=== PATIENT | female | born 1980 | race Caucasian/White ===

== ENCOUNTER 2017-01-20 16:38 | Emergency (ER) | payer SELFPAY ==
[~2017-01-20] VITALS: Ht 160 cm; Wt 54.6 kg
[~2017-01-20 16:38] MED LIST: PRED20TA PO
[2017-01-20 16:45] VITALS: TEMP 37; Ht 160 cm; Wt 54.6 kg
[2017-01-20] MEDS ORDERED: AMPICILLIN/SULBACTAM SOD INJ 3,000 MG in SODIUM CHLORIDE 0.9% 100ML 100 ML IV ONE (17:45)
--- NOTE | 2017-01-20 17:59 | EMERGENCY ROOM VISIT NOTE ---
History Report prepared by Karla: Jeffry Butler Under the Supervision of: Dr. Bradley Sepulveda M.D. First contact with patient: 17:38 Chief Complaint: HAND PAIN/INJURY Stated Complaint: RT HAND SWOLLEN History of Present Illness The patient is a 36 year old female who presents to the Emergency Room with complaints of worsening right hand swelling beginning six days ago. The patient states that she bumped her hand into a mailbox six days ago. She notes that she suffered a cut and swelling. She reports that the cut has gone away, but states that the swelling has worsened since then. The patient notes that she also began to experience redness 2-3 days after the she first hit her hand, and the redness has been getting worse. The patient states that her right hand feels tight. She also complains of chills. Tetanus status is unknown. Source of History: patient Onset: six days ago Position: hand (right) Quality: other (swelling and tightness) Timing: worsening Note: She also complains of hand redness. Review of Systems See HPI for pertinent positives & negatives. A total of 10 systems reviewed and were otherwise negative. Past Medical & Surgical Medical Problems: (1) No chronic problems Family History No pertinent family history stated. Social History Smoking Status: Current Every Day Smoker Marital Status: Housing Status: lives with family Occupation Status: unemployed Current/Historical Medications Scheduled Amoxicillin & Pot Clavulanate (Augmentin 875-125 mg), 875 MG PO BID Allergies Coded Allergies: Banana (Verified Allergy, Unknown, 01/20/17) No Known Allergies (Verified , 06/24/04) Uncoded Allergies: HONEY (Allergy, Unknown, 06/24/04) Physical Exam Vital Signs Date Time Temp Pulse Resp B/P (MAP) Pulse Ox O2 Delivery O2 Flow Rate FiO2 01/20/17 18:16 71 18 140/81 98 Room Air 01/20/17 16:45 37.0 86 20 151/90 100 Room Air Physical Exam GENERAL: Patient is in no acute distress. HEENT: No acute trauma, normocephalic atraumatic, mucous membranes moist, no nasal congestion, no scleral icterus. NECK: No stridor, no adenopathy, no meningismus, trachea is midline. LUNGS: Clear to auscultation bilaterally, no wheeze, no rhonchi, breath sounds equal. HEART: Without murmurs gallops or rubs, regular rate and rhythm. ABDOMEN: Soft, nontender, bowel sounds positive, no hernias, no peritonitis. EXTREMITIES: Right dorsal hand has erythema and swelling to the area around the third and fourth metacarpals, no evidence of fracture clinically, minimal pain with palpation, no drainage, no palpable abscess, no pain with extensor tendon movement. NEUROLOGIC: Oriented x 3, no acute motor or sensory deficits, no focal weakness. SKIN: No rash, no jaundice, no diaphoresis. Medical Decision & Procedures Laboratory Results 01/20/17 18:10 Test 01/20/17 18:10 Red Blood Count 4.49 M/uL (4.2-5.4) Mean Corpuscular Volume 92.9 fL (80-100) Mean Corpuscular Hemoglobin 31.2 pg (25-34) Mean Corpuscular Hemoglobin Concent 33.6 g/dl (32-36) RDW Standard Deviation 45.2 fL (36.4-46.3) RDW Coefficient of Variation 13.3 % (11.5-14.5) Mean Platelet Volume 10.7 fL (7.4-10.4) Laboratory results reviewed by me. Medications Administered Medications (Trade) Dose Ordered Sig/Jordan Route Start Time Stop Time Status Last Admin Dose Admin Ampicillin Sodium/ Sulbactam Sodium 3000 mg/Sodium Chloride 108 ml @ 200 mls/hr ONE ONCE IV 01/20/17 17:45 01/20/17 18:17 DC 01/20/17 18:13 200 MLS/HR Diphtheria/ Pertussis/Tetanus Vacc (Adacel Inj) 0.5 ml ONCE ONCE IM. 01/20/17 18:00 01/20/17 18:01 DC 01/20/17 18:14 0.5 ML ED Course 1739: The patient was evaluated in room B3. A complete history and physical exam was performed. 1745: Ampicillin Sodium / Sulbactam Sodium 3000mg mg / Sodium Chloride 108 ml @ 200 mls / hr IV 1800: Adacel Inj 0.5 ml IM 1852: Reevaluated the patient. Discussed results and discharge instructions: She verbalized understanding and agreement. The patient is ready for discharge. Medical Decision Differential diagnoses include: tenosynovitis, cellulitis, fracture, dislocation , and abscess. There is no leukocytosis or concerning anemia. Clinically, there was no evidence for fracture. The patient was asking not to have an x-ray as she has no health insurance. Given the mechanism, given my exam, an x-ray was not ordered. The patient did receive IV Unasyn as antibiotic coverage. She is being discharged on Augmentin. An Adacel booster was given IM to update her tetanus status. The patient has a right dorsal hand cellulitis. No drainage, no abscess. She does not appear to have tenosynovitis as she has no pain with extensor tendon function. The patient was encouraged to rest. If worsening or not improving, she will return. She will take her antibiotics until the prescription is all. Medication Reconcilliation Current Medication List: was personally reviewed by me Blood Pressure Screening Patient's blood pressure: Elevated blood pressure Blood pressure disposition: Elevated BP felt to be situational Impression Primary Impression: Cellulitis Scribe Attestation The scribe's documentation has been prepared under my direction and personally reviewed by me in its entirety. I confirm that the note above accurately reflects all work, treatment, procedures, and medical decision making performed by me. Departure Information Dispostion Home / Self-Care Prescriptions Amoxicillin & Pot Clavulanate (Augmentin 875-125 mg) 1 Tab Tab 875 MG PO BID for 10 Days, #20 TAB Prov: Bradley Sepulveda M.D. 01/20/17 Referrals No Doctor, Assigned (PCP) Forms HOME CARE DOCUMENTATION FORM, IMPORTANT VISIT INFORMATION Patient Instructions My [facility] Additional Instructions augmentin 2x per day for 10 days motrin or tylenol for pain return for worsening symptoms or fever return if not improving labs today were all ok
[2017-01-20] MEDS ORDERED: DIPHTHERIA/TETANUS/PERTUSSIS 0.5 ML SYR/VIAL IM. ONE (18:00)
[2017-01-20 18:42] LABS: HEMATOCRIT 41.7 % (37-47); MEAN CELL VOLUME 92.9 fL (80-100); MEAN CORPUSCULAR HEMOGLOBIN 31.2 pg (25-34); MEAN CORPUSCULAR HGB CONC 33.6 g/dl (32-36); MEAN PLATELET VOLUME 10.7 fL (7.4-10.4); PLATELET COUNT 255 K/uL (130-400); RED BLOOD COUNT 4.49 M/uL (4.2-5.4); WHITE BLOOD COUNT 10.39 K/uL (4.8-10.8)
[2017-01-20] MEDS ORDERED: AMOX875T PO (18:48)
[2017-01-20 19:36] VITALS: BP 134/84; PULSE 84; O2SAT 99
[2017-01-20] MEDS ORDERED: AMOXICILLIN/CLAVULANATE TAB 875 MG TAB PO ONE ×2 (19:40→21:00)
== END 2017-01-20 19:38 | disposition home or self-care (01) ==
LOC: C.EDB 16:39
DX: L03.113 Cellulitis of right upper limb (principal); Z23 Encounter for immunization; F17.210 Nicotine dependence, cigarettes, uncomplicated